=== PATIENT | male | born 1965 | race Caucasian/White ===

== ENCOUNTER 2018-07-11 12:19 | Day surgery (SDC) | payer OTHER ==
[2018-07-11] MEDS ORDERED: LIDOCAINE 2% (SDV) 5 ML INJ (15:29)
[2018-07-11] MEDS ORDERED: PROPOFOL 40 ML (15:29)
== END 2018-07-11 16:54 | disposition home or self-care (01) ==
LOC: GIL 12:19
DX: Z12.11 Encounter for screening for malignant neoplasm of colon (principal); I10 Essential (primary) hypertension
CPT/HCPCS: 45378